=== PATIENT | female | born 2000 | race Caucasian/White ===

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

== ENCOUNTER 2020-01-07 22:46 | Emergency (ER) | payer OTHER ==
[~2020-01-07] VITALS: Ht 162.5 cm; Wt 61.2 kg
[~2020-01-07 22:46] MED LIST changes: +DICYCLOMINE HCL10 MG PO
[2020-01-07 23:29] LABS: BASO % 0.6 % (0.0-1.0); EOS # 0.2 10*3/uL (0.0-0.4); EOS % 3.1 % (1.0-4.0); HEMATOCRIT 39.7 % (37.0-47.0); HEMOGLOBIN 13.3 g/dl (12.0-16.0); LYMPH # 1.5 10*3/uL (1.3-4.4); LYMPH % 31.8 % (27.0-41.0); MEAN CELL VOLUME 93.9 fl (81.0-99.0); MEAN CORPUSCULAR HGB 31.4 pg (27.0-31.0); MEAN CORPUSCULAR HGB CONC 33.5 g/dl (33.0-37.0); MEAN PLATELET VOLUME 8.6 fl (9.6-12.3); MONO # 0.5 10*3/uL (0.1-1.0); NEUT # 2.6 10*3/uL (2.3-7.9); NEUT % 54.3 % (47.0-73.0); PLATELET COUNT AUTOMATED 319 10*3/uL (130-400); RED BLOOD COUNT 4.23 10*6/uL (4.10-5.10); RED CELL DISTRI WIDTH 11.6 % (0-14.5); WHITE BLOOD COUNT 4.8 10*3/uL (4.8-10.8)
[2020-01-07 23:29] LABS: BILIRUBIN NEGATIVE (NEGATIVE); BLOOD 3+ (NEGATIVE); CLARITY SL CLOUDY (CLEAR); COLOR YELLOW (YELLOW); GLUCOSE NEGATIVE (NEGATIVE); KETONE NEGATIVE (NEGATIVE); LEUKO ESTERASE TRACE (NEGATIVE); NITRITE NEGATIVE (NEGATIVE); UROBILINOGEN 0.2 E.U./dl (0.2-1.0)
[2020-01-07 23:31] LABS: BACTERIA TRACE
[2020-01-07 23:44] LABS: ALBUMIN 3.8 gm/dl (3.1-4.5); ALKALINE PHOSPHATASE 74 U/L (45-117); BUN 9 mg/dl (7-24); CHLORIDE 110 mmol/L (98-107); CREATININE 0.72 mg/dL (0.55-1.02); POTASSIUM 3.6 mmol/L (3.5-5.1); SGOT/AST 16 IU/L (3-35); SGPT/ALT 21 U/L (12-78); SODIUM 140 mmol/L (136-145); TOTAL PROTEIN 7.4 gm/dL (6.4-8.2)
[2020-01-07 23:46] LABS: B-hCG (QUALITATIVE) NEGATIVE (NEGATIVE)
[2020-01-08] MEDS ORDERED: AMINOPHYLLIN200 MG PO (01:23)
== END 2020-01-08 01:50 | disposition home or self-care (01) ==
LOC: ED 22:46
PROVIDERS: Physician Assistant
DX: N39.0 Urinary tract infection, site not specified (principal); N93.9 Abnormal uterine and vaginal bleeding, unspecified; F31.9 Bipolar disorder, unspecified; Z79.899 Other long term (current) drug therapy

== ENCOUNTER 2021-05-12 23:59 | Emergency (ER) | payer SELFPAY ==
[~2021-05-12] VITALS: Ht 167.6 cm; Wt 65.8 kg
[~2021-05-12 23:59] MED LIST changes: +AMINOPHYLLIN200 MG PO
[2021-05-13] MEDS ORDERED: AUGMENTIN 875875 MG PO (00:28)
== END 2021-05-13 00:43 | disposition home or self-care (01) ==
LOC: ED 23:59
DX: S61.411D Laceration without foreign body of right hand, subsequent encounter (principal); J40 Bronchitis, not specified as acute or chronic; Z79.899 Other long term (current) drug therapy; Z79.2 Long term (current) use of antibiotics; W54.0XXD Bitten by dog, subsequent encounter

== ENCOUNTER → 2021-12-02 | Outpatient (CLI) | payer OTHER | END | disposition home or self-care (01) | LOC: COVID19 15:49 | PROVIDERS: ATTEND Internal Medicine | DX: Z11.52 Encounter for screening for COVID-19 (principal) ==

== ENCOUNTER → 2022-01-10 | Outpatient (CLI) | payer OTHER | END | disposition home or self-care (01) | LOC: COVID19 16:38 | PROVIDERS: ATTEND Internal Medicine | DX: Z20.822 Contact with and (suspected) exposure to COVID-19 (principal) ==

== ENCOUNTER 2022-01-28 19:35 | Emergency (ER) | payer SELFPAY ==
[~2022-01-28] VITALS: Ht 165.1 cm; Wt 61.2 kg
[2022-01-28 19:54] LABS: BILIRUBIN Negative (Negative); BLOOD Negative (Negative); CLARITY Cloudy (Clear); COLOR Dark Yellow (Yellow); GLUCOSE Negative (Negative); KETONE 1+ (Negative); LEUKO ESTERASE 1+ (Negative); NITRITE Negative (Negative); PH 8.5 (4.5-8.0); SPECIFIC GRAVITY >= 1.030 (1.001-1.030)
[2022-01-28 19:59] LABS: BASO % 0.1 % (0.0-1.0); HEMATOCRIT 42.7 % (37.0-47.0); LYMPH # 0.4 10*3/uL (1.3-4.4); MEAN CELL VOLUME 92.8 fl (81.0-99.0); MEAN CORPUSCULAR HGB 31.3 pg (27.0-31.0); MEAN CORPUSCULAR HGB CONC 33.7 g/dl (33.0-37.0); MEAN PLATELET VOLUME 8.2 fl (9.6-12.3); MONO # 0.4 10*3/uL (0.1-1.0); MONO % 4.8 % (3.0-9.0); NEUT # 6.5 10*3/uL (2.3-7.9); PLATELET COUNT AUTOMATED 292 10*3/uL (130-400); RED CELL DISTRI WIDTH 12.2 % (0-14.5); WHITE BLOOD COUNT 7.3 10*3/uL (4.8-10.8)
[2022-01-28 20:08] LABS: BACTERIA 3+; MUCOUS 3+
[2022-01-28 20:18] LABS: ALKALINE PHOSPHATASE 64 U/L (45-117); BUN 10 mg/dl (7-24); CHLORIDE 109 mmol/L (98-107); CREATININE 0.67 mg/dL (0.55-1.02); POTASSIUM 3.6 mmol/L (3.5-5.1); SGOT/AST 6 IU/L (3-35); SGPT/ALT 11 U/L (12-78); SODIUM 138 mmol/L (136-145); TOTAL PROTEIN 7.3 gm/dL (6.4-8.2)
[2022-01-28] MEDS ORDERED: CEFUROXIME AXE500 MG PO (20:48)
== END 2022-01-28 20:55 | disposition home or self-care (01) ==
LOC: ED 19:35
PROVIDERS: Physician Assistant
DX: N39.0 Urinary tract infection, site not specified (principal)

== ENCOUNTER 2022-07-09 20:10 | Emergency (ER) | payer SELFPAY ==
[~2022-07-09] VITALS: Ht 294.6 cm; Wt 68.0 kg
[~2022-07-09 20:10] MED LIST changes: +CEFUROXIME AXE500 MG PO
[2022-07-09] MEDS ORDERED: CEFDINIR300 MG PO (22:18)
== END 2022-07-09 22:36 | disposition home or self-care (01) ==
LOC: ED 20:10
DX: R07.89 Other chest pain (principal); Z20.822 Contact with and (suspected) exposure to COVID-19; R05.9 Cough, unspecified

== ENCOUNTER 2023-01-13 19:14 | Emergency (ER) | payer BC ==
[~2023-01-13] VITALS: Ht 162.5 cm; Wt 63.5 kg
[~2023-01-13 19:14] MED LIST changes: +CEFDINIR300 MG PO
[2023-01-13 19:46] LABS: BASO % 0.4 % (0.0-1.0); EOS # 0.1 10*3/uL (0.0-0.4); EOS % 1.3 % (1.0-4.0); HEMATOCRIT 38.3 % (37.0-47.0); LYMPH # 1.1 10*3/uL (1.3-4.4); LYMPH % 20.6 % (27.0-41.0); MEAN CELL VOLUME 92.3 fl (81.0-99.0); MEAN CORPUSCULAR HGB 30.6 pg (27.0-31.0); MEAN CORPUSCULAR HGB CONC 33.2 g/dl (33.0-37.0); MEAN PLATELET VOLUME 8.4 fl (9.6-12.3); MONO # 0.7 10*3/uL (0.1-1.0); MONO % 13.4 % (3.0-9.0); NEUT # 3.6 10*3/uL (2.3-7.9); NEUT % 64.1 % (47.0-73.0); PLATELET COUNT AUTOMATED 275 10*3/uL (130-400); RED BLOOD COUNT 4.15 10*6/uL (4.10-5.10); RED CELL DISTRI WIDTH 11.9 % (0-14.5); WHITE BLOOD COUNT 5.5 10*3/uL (4.8-10.8)
[2023-01-13 19:59] LABS: ALKALINE PHOSPHATASE 51 U/L (46-116); BUN 7 mg/dl (9-23); CHLORIDE 104 mmol/L (98-107); POTASSIUM 3.6 mmol/L (3.4-5.1); SGPT/ALT 8 U/L (10-49); TOTAL PROTEIN 6.9 gm/dL (6.0-8.0)
[2023-01-14] MEDS ORDERED: CLINDAMYCIN HC300 MG PO (04:03)
== END 2023-01-14 04:10 | disposition home or self-care (01) ==
LOC: ED 19:14
PROVIDERS: Physician Assistant
DX: K04.7 Periapical abscess without sinus (principal)

== ENCOUNTER 2023-06-05 08:46 | Emergency (ER) | payer BC ==
[~2023-06-05] VITALS: Ht 162.5 cm; Wt 65.8 kg
[~2023-06-05 08:46] MED LIST changes: +CLINDAMYCIN HC300 MG PO
[2023-06-05 09:24] LABS: BASO % 0.3 % (0.0-1.0); EOS % 0.6 % (1.0-4.0); HEMATOCRIT 37.6 % (37.0-47.0); LYMPH # 0.8 10*3/uL (1.3-4.4); LYMPH % 24.3 % (27.0-41.0); MEAN CELL VOLUME 95.4 fl (81.0-99.0); MEAN CORPUSCULAR HGB CONC 33.5 g/dl (33.0-37.0); MEAN PLATELET VOLUME 8.7 fl (9.6-12.3); MONO # 0.5 10*3/uL (0.1-1.0); MONO % 14.2 % (3.0-9.0); NEUT % 60.6 % (47.0-73.0); PLATELET COUNT AUTOMATED 247 10*3/uL (130-400); RED BLOOD COUNT 3.94 10*6/uL (4.10-5.10); RED CELL DISTRI WIDTH 11.9 % (0-14.5); WHITE BLOOD COUNT 3.3 10*3/uL (4.8-10.8)
[2023-06-05 10:07] LABS: ALKALINE PHOSPHATASE 53 U/L (46-116); BUN 9 mg/dl (9-23); CHLORIDE 107 mmol/L (98-107); POTASSIUM 3.6 mmol/L (3.4-5.1); SGPT/ALT < 7 U/L (10-49); TOTAL PROTEIN 6.8 gm/dL (6.0-8.0)
[2023-06-05 10:08] LABS: B-hCG (QUALITATIVE) NEGATIVE (NEGATIVE)
[2023-06-05 11:00] LABS: BILIRUBIN Negative (Negative); BLOOD Negative (Negative); CLARITY Clear (Clear); COLOR Yellow (Yellow); GLUCOSE Negative (Negative); KETONE Negative (Negative); LEUKO ESTERASE Trace (Negative); NITRITE Negative (Negative); UROBILINOGEN 0.2 E.U./dl (0.0-1.0)
== END 2023-06-05 12:01 | disposition home or self-care (01) ==
LOC: ED 08:46
PROVIDERS: Emergency Medicine
DX: K59.00 Constipation, unspecified (principal); R11.0 Nausea; R19.7 Diarrhea, unspecified; Z87.891 Personal history of nicotine dependence; F31.9 Bipolar disorder, unspecified

== ENCOUNTER 2024-04-21 00:57 | Emergency (ER) | payer SELFPAY ==
[~2024-04-21] VITALS: Ht 165.1 cm; Wt 63.5 kg
== END 2024-04-21 01:47 | disposition home or self-care (01) ==
LOC: ED 00:57
DX: B34.9 Viral infection, unspecified (principal); H92.09 Otalgia, unspecified ear; Z88.0 Allergy status to penicillin; Z79.2 Long term (current) use of antibiotics

== ENCOUNTER 2024-09-09 00:23 | Emergency (ER) | payer SELFPAY ==
[2024-09-09] MEDS ORDERED: CLINDAMYCIN HCL 300 MG CAPSULE PO ONE (00:50)
[2024-09-09] MEDS ORDERED: Ondansetron Hydrochloride 4 MG TAB SL ONE (00:50)
[2024-09-09] MEDS ORDERED: Acetaminophen/Hydrocodone 5 MG/325 MG TABLET PO ONE (00:50)
[2024-09-09] MEDS ORDERED: CLINDAMYCIN HC300 MG PO (00:52)
== END 2024-09-09 01:05 | disposition home or self-care (01) ==
LOC: ED 00:23
DX: K02.9 Dental caries, unspecified (principal); Z88.0 Allergy status to penicillin; Z79.2 Long term (current) use of antibiotics

== ENCOUNTER 2024-09-27 06:05 | Emergency (ER) | payer OTHER ==
[~2024-09-27] VITALS: Ht 165.1 cm; Wt 63.5 kg
[2024-09-27] MEDS ORDERED: methylPREDNISolone sod succ 125 MG VIAL IM ONE (06:50)
[2024-09-27] MEDS ORDERED: ZITHROMAX250 MG PO (06:53)
[2024-09-27] MEDS ORDERED: PREDNISONE20 M1 PO (06:53)
== END 2024-09-27 09:07 | disposition home or self-care (01) ==
LOC: ED 06:05
DX: B34.9 Viral infection, unspecified (principal); F31.9 Bipolar disorder, unspecified; Z88.0 Allergy status to penicillin

== ENCOUNTER 2024-12-24 19:38 | Emergency (ER) | payer OTHER ==
[~2024-12-24] VITALS: Ht 165.1 cm; Wt 65.8 kg
[~2024-12-24 19:38] MED LIST changes: +PREDNISONE20 M1 PO; +ZITHROMAX250 MG PO
[2024-12-24] MEDS ORDERED: CLEOCIN HCL300 MG PO (20:10)
[2024-12-24] MEDS ORDERED: Acetaminophen/Hydrocodone 5 MG/325 MG TABLET PO ONE (20:10)
[2024-12-24] MEDS ORDERED: CLINDAMYCIN HCL 300 MG CAPSULE PO ONE (20:10)
== END 2024-12-24 20:17 | disposition home or self-care (01) ==
LOC: ED 19:38
DX: K04.7 Periapical abscess without sinus (principal); Z88.0 Allergy status to penicillin

== ENCOUNTER 2025-06-28 14:03 | Emergency (ER) | payer OTHER ==
[~2025-06-28] VITALS: Ht 165.1 cm; Wt 68.0 kg
[~2025-06-28 14:03] MED LIST changes: +CLEOCIN HCL300 MG PO
[2025-06-28] MEDS ORDERED: NAPROSYN500 MG PO (15:40)
== END 2025-06-28 15:49 | disposition home or self-care (01) ==
LOC: ED 14:03
DX: M94.0 Chondrocostal junction syndrome [Tietze] (principal); F31.9 Bipolar disorder, unspecified; Z79.899 Other long term (current) drug therapy; Z88.0 Allergy status to penicillin